=== PATIENT | female | born 1990 | race Caucasian/White ===

== ENCOUNTER 2016-05-18 17:08 | Emergency (ER) | payer BC, OTHER ==
[2016-05-18 17:36] VITALS: BP 117/80; PULSE 76; TEMP 98.6; BMI 23.8
--- NOTE | 2016-05-18 17:40 | EDPRACDOC ---
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 PT STATES THAT HER 2ND AND 3RD FINGERS HAD SIMILAR SPOTS THAT HAVE SINCE RESOLVED, STATES THAT THE AREA ON HER THUMB IS GETTING SMALLER. Location: Reports: Left, Thumb Dominant Hand: Right Mechanism: Reports: No Injury/Trauma Circumstances: Reports: Work-Related Associated Signs & Symptoms: Denies: Numbness, Weakness, Hand Pain, Wrist Pain, Forearm Pain, Elbow Pain ED Past Medical History - History Reviewed Yes Nurses notes reviewed and agree except as marked No Past Medical History: Yes Patient has no past medical history - Social Medical History Smoking Status: Never smoker EDM Review of Systems - Review of Systems Constitutional: negative: Chills, Fever Gastrointestinal: negative: Nausea, Vomiting Neurological: negative: Dizziness, Numbness, Weakness Musculoskeletal: Hand Integumentary: Wound - Physical Exam Constitutional: Alert (Awake), No apparent distress Oriented to: Time, Person, Place Last recorded Vital Signs: Last Vital Signs Temp 98.6 F 05/18/16 17:35 Pulse 76 05/18/16 17:35 Resp 18 05/18/16 17:35 BP 117/80 05/18/16 17:35 Pulse Ox 97 05/18/16 17:35 Oxygen Pulse Oxygen Saturation 97 O2 Device Room Air Oxygen Flow Rate Fraction of Inspired Oxygen ( FIO2) - HEENT Head: Normal ( normocephalic) - Neurologic Memory Impaired: Normal Motor Function: Normal (Normal tone, Pulses 2+ No cyanosis or edema, FROM) Cranial Nerve: Normal (CN II-X11 intact sensation, strength 5/5) Cerebellar: Normal Mood Description: Normal Perception: Normal ED Hand Problem Physical Exam - Musculoskeletal Hand: Normal Wrist: Normal Digit: Other (0.1 CM AREA OF WHITE DISCOLORATION, NO INDURATION, FLUCTUANCE, NONTENDER, NO INCREASED TEMP, NO SKIN BREAKDOWN.). negative: Swelling, Deformity, Limited ROM, Mild Tenderness Digit Strength: Normal Nail: Normal Nailbed: Normal Soft Tissue: Normal Distal Function/Circulation: Normal, Capillary Refill. negative: Motor Deficit , Pulse Deficit, Sensory Deficit - Integumentary Skin: Other (SEE ABOVE) - Differential Diagnosis Other (CHEMICAL BURN) Decision Time to Discharge: 17:42 - Departure Disposition: Home Condition: Stable Final Diagnosis: POSSIBLE CHEMICAL EXPOSURE TO LEFT THUMB Instructions: RICE: Routine Care for Injuries Education/Counseling Given To: Patient Education/Counseling Given Regarding: Diagnosis, Treatment, Prognosis, Follow Up Referrals: Julio César Joyce MD [Staff Physician] - One Week Additional Instructions: WASH DAILY WITH SOAP AND WATER, COVER WITH ANTIBIOTIC OINTMENT AND CLEAN BANDAGE , USE TYLENOL OR MOTRIN NEEDED FOR PAIN, RETURN TO THE ED FOR ANY WORSENING SYMPTOMS OR CONCERNS.
== END 2016-05-18 18:21 | disposition home or self-care (01) ==
LOC: EDMC 17:08
DX: Z77.098 Contact with and (suspected) exposure to other hazardous, chiefly nonmedicinal, chemicals (principal)
CPT/HCPCS: 99282